=== PATIENT | male | born 1945 | race Caucasian/White ===

== ENCOUNTER 2016-12-03 10:40 | Inpatient (IN) | payer OTHER ==
[~2016-12-03] VITALS: Ht 172.7 cm; Wt 110.9 kg
[2016-12-12] MEDS ORDERED: OMEP20TA PO (12:46)
[2016-12-12] MEDS ORDERED: PRED20 PO (12:46)
[2016-12-12] MEDS ORDERED: AMLO5TAB2 PO (12:46)
[2016-12-12] MEDS ORDERED: MELO-1 PO (12:46)
[2016-12-12] MEDS ORDERED: OXYC1TAB36 PO (12:46)
[2016-12-15] MEDS: POVIDONE IODINE 7.5% SCRUB 118 ML BOTTLE TOP SCH (05:50)
[2016-12-15 05:55] VITALS: BP 170/93; PULSE 76; RESP 20; TEMP 97.9; O2SAT 96
[2016-12-15] MEDS ORDERED: GENTAMICIN SULFATE 80 MG/2 ML VIAL ONE (05:57)
[2016-12-15] MEDS ORDERED: VANCOMYCIN 1000 MG/NS 250 ML (for <70 kg) IV SCH ×2 (06:00)
[2016-12-15] MEDS: LACTATED RINGER'S 1000 ML IV SCH (06:00)
[2016-12-15] MEDS ORDERED: DEXAMETHASONE SOD PHOS 20 MG/5 ML VIAL IV ONE (06:00)
[2016-12-15] MEDS: SODIUM CHLORID 0.9% 500 ML IV SCH ×2 (06:00→22:40)
[2016-12-15] MEDS ORDERED: METOPROLOL TARTRATE 25 MG TAB PO PRN (06:00)
[2016-12-15] MEDS ORDERED: INSULIN HUMAN REGULAR 1,000 UNITS/10 ML VIAL SQ PRN (06:00)
[2016-12-15] MEDS: CHLORHEXIDINE GLUCONATE 4% SOLN 120 ML BTL TOP SCH (06:00)
[2016-12-15] MEDS ORDERED: ceFAZolin 2 GM PREMIX 50 ML IV SCH (06:00)
[2016-12-15] MEDS ORDERED: MIDAZOLAM HCL 2 MG/2 ML VIAL ONE (06:45)
[2016-12-15] MEDS ORDERED: FAMOTIDINE 20 MG/2 ML VIAL ONE (06:45)
[2016-12-15] MEDS ORDERED: TRANEXAMIC ACID IV SCH ×2 (07:00→10:00)
[2016-12-15] MEDS ORDERED: SODIUM CHLORIDE 0.9% IV SCH ×2 (07:00→10:00)
[2016-12-15] MEDS ORDERED: TRANEXAMIC PERI-ARTICULAR 3,000 MG/NS 100 ML P-ARTICULR SCH ×2 (07:00)
[2016-12-15] MEDS ORDERED: EXPAREL PERI-ARTICULAR INJECTION (TOTAL VOL. 60 ML) P-ARTICULR SCH ×2 (07:00)
[2016-12-15] MEDS ORDERED: ENOX40P SQ (07:11)
[2016-12-15] MEDS ORDERED: ASPI81CH37 CHEW (07:12)
[2016-12-15] MEDS ORDERED: PERC10TA27 PO (07:13)
[2016-12-15] MEDS ORDERED: diphenhydrAMINE HCL 50 MG/ML VIAL IV PRN (07:15)
[2016-12-15] MEDS ORDERED: ZOLPIDEM TARTRATE 5 MG TAB PO PRN (07:15)
[2016-12-15] MEDS ORDERED: MORPHINE SULFATE 4 MG/ML INJ IV PUSH PRN (07:15)
[2016-12-15] MEDS ORDERED: oxyCODONE/ACETAMINOPHEN 5 MG/325 MG TAB PO PRN ×2 (07:15)
[2016-12-15] MEDS ORDERED: NALOXONE HCL 0.4 MG/ML AMP IV PRN (07:15)
[2016-12-15] MEDS ORDERED: MAGNESIUM HYDROXIDE SUSP 30 ML CUP PO PRN (07:15)
[2016-12-15] MEDS ORDERED: Post-op Orders (for Pharmacy) MISC XX ONE (07:15)
[2016-12-15] MEDS ORDERED: SODIUM CHLORIDE 0.9% FLUSH 5 ML FLUSH IVF PRN (07:15)
[2016-12-15] MEDS ORDERED: ALUMINUM/MAGNESIUM/SIMETH 30 ML CUP PO PRN (07:15)
[2016-12-15] MEDS ORDERED: BISACODYL 10 MG SUPP PR PRN (07:15)
[2016-12-15] MEDS ORDERED: ONDANSETRON HCL 4 MG/2 ML VIAL IVP PRN (07:15)
[2016-12-15] MEDS: PANTOPRAZOLE SOD 20 MG DELAYED RELEASE TAB PO SCH (09:00)
[2016-12-15] MEDS: SODIUM CHLORIDE 0.9% FLUSH 5 ML FLUSH IVF SCH ×2 (09:00→21:00)
[2016-12-15] MEDS ORDERED: fentaNYL CITRATE 250 MCG/5 ML AMP ONE (09:15)
[2016-12-15] MEDS ORDERED: *morphine SULFATE 8 MG/ML PERIprocedure ONLY ONE (09:27)
[2016-12-15] MEDS: SODIUM CHLOR 0.9% 1000 ML INJ 1,000 ML IV SCH ×2 (09:30→16:08)
--- NOTE | 2016-12-15 09:41 | MP ---
cc: EDITH RAMIREZ DATE OF SURGERY 12/15/2016 PREOPERATIVE DIAGNOSIS Right hip osteoarthritis. POSTOPERATIVE DIAGNOSES Right hip osteoarthritis. PROCEDURE Right total hip arthroplasty. SURGEON Dr. Edith Ramirez SENIOR MAINTENANCE TECHNICIAN Thom Steven PA-C ANESTHESIA General. ESTIMATED BLOOD LOSS 200 cc. COMPLICATIONS None. IMPLANTS USED DePuy Corail size 13 Press-Fit high-offset femoral stem, size 56-mm solid Wild Horse Gription cup, size 36-mm neutral highly cross-linked polyethylene liner, size 36-mm ceramic head, +5 neck. JUSTIFICATION This patient is a male with severe end-stage osteoarthritis involving the right hip. He has severe, disabling pain with standing, walking, ambulation, weightbearing activities, even severe pain at rest. The pain interferes with activities of daily living. He has failed greater than three months of nonoperative conservative treatment to include medications, therapy, ambulatory assistive aids, home exercise program, activity modification, weight loss attempts. X-rays of the right hip reveal severe end-stage osteoarthritis and estm-dx-[id number] joint space narrowing, subchondral sclerosis, osteophyte formation, subchondral cysts and subluxation. The patient was counseled as to the risks, benefits and alternatives to total hip arthroplasty. The risks were discussed which include but are not limited to anesthesia, bleeding, infection, damage to nerves, blood vessels, pain, stiffness, fracture dislocation, leg length discrepancies, blood clots, pulmonary embolism and even . The patient's pain is severe. He favored the benefits over the risks and did wish to proceed with surgery. PROCEDURE IN DETAIL Written consent was obtained. The patient was identified by name and taken to the operating room, placed supine on the operating room table. General anesthesia was administered as well as 2 grams of IV Ancef and 1 gram of IV vancomycin. The right hip and right lower extremity were prepped and draped using isopropyl alcohol, Hibiclens solution and Chloraprep solution. After an appropriate time-out was performed, a longitudinal incision was made over the anterolateral aspect of the right hip. The fascial layer was incised. Dissection was carried over tensor fascia matty, beneath the rectus femoris to allow exposure to the anterior hip capsule. A capsulotomy incision was performed. An oscillating saw was used to perform a femoral neck cut. The osteoarthritic femoral head and neck component was removed. A #10 blade scalpel was used to excise the labrum. Sequential reaming began at size 49 and was carried through to size 56. Subsequently, a solid size 56 Wild Horse Gription cup was impacted in approximately 45 degrees of abduction and 10 degrees of anteversion. There was excellent purchase and fixation. After insertion of the cup, a screw hole liner was placed, followed by the neutral liner. The liner was impacted in place and tested for stability. Attention was then turned to the femur where the leg was externally rotated, extended and adducted. The capsule was released off the inner surface of the greater trochanter to allow for elevation and lateralization of the femur. A box-cutting osteotome was used to gain entrance into the intramedullary canal of the femur. This was followed by canal finder and sequential broaching up to size 13. Calcar planer was used to plane the calcar. Trial head and neck components were evaluated and the final components implanted were the +5 neck, 36 head. The leg could achieve externally rotation to 70 degrees and extension all the way down to the ground without evidence of anterior instability. Fluoroscopic imaging showed proper implantation of the components. The surgical wound was thoroughly irrigated with sterile saline solution. The fascial layer was closed with #1 Vicryl suture, the subcutaneous layer with 2-0 Vicryl suture. The skin was closed with Dermabond. Sterile dressings were applied. The patient tolerated the procedure well with no intraoperative complications noted. Thom Steven, physician assistant gm of content & delivery certified, was present during the entire procedure to include patient positioning and the procedure itself. The medical necessity of a physician assistant gm of content & delivery was indicated in this case due to the complexity of the procedure. He assisted with appropriate manipulation of the leg and also retraction of muscle, tendon, bone and neurovascular structures. He assisted with preparation of bone and implantation of the prosthetic replacement. Edith Ramirez MD JWM/SSB /8:53 AM /9:28 AM
[2016-12-15] MEDS ORDERED: *ONDANSETRON 4 MG VIAL PERIprocedural Use ONLY ONE (10:03)
[2016-12-15] MEDS ORDERED: PROPOFOL 200 MG/20 ML AMP IV ONE (10:04)
[2016-12-15] MEDS ORDERED: PHENYLEPH/NS 1000 MCG/10 ML SYR IV ONE (10:05)
[2016-12-15] MEDS ORDERED: NEOSTIGMINE 3 MG/3 ML SYR IV ONE (10:05)
[2016-12-15] MEDS ORDERED: LACTATED RINGER'S 1000 ML INJ 1,000 ML IV ONE (10:05)
[2016-12-15] MEDS ORDERED: ONDANSETRON HCL 4 MG/2 ML VIAL IV PUSH ONE (10:05)
[2016-12-15] MEDS ORDERED: ePHEDrine/NS 25 MG/5 ML SYR IV ONE (10:05)
--- NOTE | 2016-12-15 10:15 | RADRPT ---
EXAM DATE/TIME: 12/15/2016 09:18 [facility] COMPARISON: No previous studies available for comparison. INDICATIONS : Post op right hip. MEDICAL HISTORY : None. SURGICAL HISTORY : Left total hip replacement ENCOUNTER: Initial ACUITY: 1 day PAIN SCORE: 4/10 LOCATION: Right pelvis FINDINGS: AP view the pelvis weighted 3 views of the right hip following recent total hip arthroplasty in [facility] ents noncemented acetabular and femoral component in place. No unexpected finding is identified. Ther e is soft tissue gas around the right hip joint. Left total hip arthroplasty is also present. CONCLUSION: Expected changes are present following right total hip arthroplasty. No acute finding is visualized. Charly Johnson MD on December 15, 2016 at 10:12 Board Certified Radiologist. This report was verified electronically.
[2016-12-15] MEDS: amLODIPine BESYLATE 5 MG TAB PO SCH (10:50)
--- NOTE | 2016-12-15 10:58 | RADRPT ---
EXAM DATE/TIME: 12/15/2016 07:29 [facility] COMPARISON: No previous studies available for comparison. INDICATIONS : Right anterior hip replacement. MEDICAL HISTORY : Hypertension. Gastroesophageal reflux disease. Arthritis. SURGICAL HISTORY : None. ENCOUNTER: Initial ACUITY: 1 day PAIN SCORE: Non-responsive. LOCATION: Right hip. FINDINGS: The patient is status post a total hip arthroplasty with a bipolar prosthesis. Prosthesis is well-sea hayder. Alignment is anatomic. A fracture is not appreciated. CONCLUSION: Anatomic alignment in the AP projection.. Isai James MD FACR Board Certified Radiologist. This report was verified electronically.
[2016-12-15 14:19] VITALS: BP 132/66; PULSE 99; RESP 16; TEMP 97.5; O2SAT 95
[2016-12-15] MEDS: predniSONE 20 MG TAB PO SCH (15:54)
[2016-12-15 16:00] VITALS: BP 135/69; PULSE 85; RESP 16; TEMP 96.4; O2SAT 96
[2016-12-15 20:00] VITALS: BP 136/65; PULSE 80; RESP 16; TEMP 97.9; O2SAT 96
[2016-12-15 22:30] VITALS: O2SAT 92
[2016-12-16] VITALS: BP 132/63; PULSE 76; RESP 16; TEMP 98.4; O2SAT 95
[2016-12-16] MEDS: SODIUM CHLOR 0.9% 1000 ML INJ 1,000 ML IV SCH (01:53)
[2016-12-16 04:00] VITALS: BP 145/69; PULSE 86; RESP 17; TEMP 97.7; O2SAT 94
[2016-12-16] MEDS: LACTATED RINGER'S 1000 ML IV SCH (04:07)
[2016-12-16] MEDS: CHLORHEXIDINE GLUCONATE 4% SOLN 120 ML BTL TOP SCH (04:08)
[2016-12-16] MEDS: POVIDONE IODINE 7.5% SCRUB 118 ML BOTTLE TOP SCH (04:08)
--- NOTE | 2016-12-16 07:44 | PD.CONS ---
HPI Service [facility] Hospitalists Consult Requested By Ortho Reason for Consult Medical management Primary Care Physician [facility] Diagnoses: History of Present Illness 71 years old male with history of hypertension and GERD, bilateral carpal tunnel syndrome admitted to the hospital under the service or right total hip arthroplasty, hospitalist service requested to see patient for medical management. Patient today resting in bed very comfortably, he is pain-free, very pleasant, he told me he was on prednisone for the last few days due to getting arthritis in his wrist, he is on aspirin prophylactically. He denied having any history of coronary artery disease stroke, he is a nonsmoker. Currently no chest pain, short of breath fever chills, bone pain diarrhea constipation, he stated his right breast arthritis improved significantly Review of Systems All 10 systems reviewed and was positive for what is mentioned in history of present illness otherwise negative Past Family Social History Allergies: Coded Allergies: No Known Allergies (Unverified , 12/15/16) Past Medical History Hypertension GERD Bilateral carpal tunnel syndrome status post surgery Past Surgical History As above Family History History of pancreatic cancer in his mother sister and aunt Social History Denied tobacco alcohol or illicit drug abuse Physical Exam Vital Signs Vital Signs Date Time Temp Pulse Resp B/P Pulse Ox O2 Delivery O2 Flow Rate FiO2 12/16/16 04:00 Room Air 12/16/16 04:00 97.7 86 17 145/69 94 12/16/16 00:00 98.4 76 16 132/63 95 12/16/16 00:00 Room Air 12/15/16 22:30 92 21 12/15/16 20:00 97.9 80 16 136/65 96 12/15/16 20:00 Room Air 12/15/16 16:00 96.4 85 16 135/69 96 12/15/16 14:19 97.5 99 16 132/66 95 12/15/16 13:00 97.6 75 16 140/73 95 Room Air 12/15/16 12:00 78 16 139/71 94 Room Air 12/15/16 11:00 79 15 138/67 100 Nasal Cannula 2 12/15/16 10:30 80 15 141/69 99 Nasal Cannula 2 12/15/16 10:15 97.6 82 15 145/77 98 Nasal Cannula 2 12/15/16 10:00 78 15 147/75 97 Nasal Cannula 2 12/15/16 09:45 77 14 150/70 96 Nasal Cannula 2 12/15/16 09:32 15 12/15/16 09:30 76 14 155/72 95 Nasal Cannula 2 12/15/16 09:15 75 14 160/78 99 Nasal Cannula 3 12/15/16 09:10 97.9 75 13 164/81 98 Nasal Cannula 3 Physical Exam GENERAL: This is a well-nourished, well-developed patient, in no apparent distress. SKIN: No rashes, warm and dry HEAD: Atraumatic. Normocephalic. EYES: Pupils equal round and reactive. Extraocular motions intact. No scleral icterus. ENT: Nose without bleeding, or drainage, Airway patent. NECK: Trachea midline. Supple CARDIOVASCULAR: Regular rate and rhythm without murmurs, gallops, or rubs. RESPIRATORY: Fair air entry bilaterally. No wheezes, rales, or rhonchi. GASTROINTESTINAL: Abdomen soft, non-tender, nondistended. Positive bowel sounds MUSCULOSKELETAL: Extremities without clubbing, cyanosis, or edema. Pedal pulses appreciated NEUROLOGICAL: Awake and alert. Moves all extremity. Normal speech.no focal neurological deficit Imaging Last Impressions Hip and Pelvis X-Ray 12/15/16 0000 Signed Impressions: Service Date/Time: Thursday, December 15, 2016 09:18 - CONCLUSION: Expected changes are present following right total hip arthroplasty. No acute finding is visualized. Charly Johnson MD Hip X-Ray 12/15/16 0000 Signed Impressions: Service Date/Time: Thursday, December 15, 2016 07:29 - CONCLUSION: Anatomic alignment in the AP projection.. Isai James MD Assessment and Plan Assessment and Plan 71 years old male admitted with Osteoarthritis status post right total hip arthroplasty: Doing well postop, continue postop protocol, DVT prophylaxis per ortho, pain management with Percocet and morphine Hypertension essential: Agree with continuing amlodipine, will add Vasotec as needed History of GERD: Agree with continuing PPI History of recent incidental finding of lung nodules, patient awaiting results of outpatient PET scan>> follow as an outpatient DVT prophylaxis per ortho Thank you for this consultation Discussed Condition With Patient and his ErnestinaClaudia MD Dec 16, 2016 07:44
[2016-12-16 08:00] VITALS: BP 158/82; PULSE 84; RESP 18; TEMP 99.1; O2SAT 94
[2016-12-16] MEDS ORDERED: ENOXAPARIN SODIUM 40 MG/0.4 ML SYRINGE SQ SCH (08:00)
[2016-12-16] MEDS: PANTOPRAZOLE SOD 20 MG DELAYED RELEASE TAB PO SCH (08:22)
[2016-12-16] MEDS: SODIUM CHLORIDE 0.9% FLUSH 5 ML FLUSH IVF SCH (08:22)
[2016-12-16] MEDS: predniSONE 20 MG TAB PO SCH (08:22)
[2016-12-16] MEDS: amLODIPine BESYLATE 5 MG TAB PO SCH (08:22)
--- NOTE | 2016-12-16 08:23 | PD.ORT.PN ---
Subjective Post Op Day #: 1 Subjective Remarks minimal pain. Objective Vitals Vital Signs Date Time Temp Pulse Resp B/P Pulse Ox O2 Delivery O2 Flow Rate FiO2 12/16/16 04:00 Room Air 12/16/16 04:00 97.7 86 17 145/69 94 12/16/16 00:00 98.4 76 16 132/63 95 12/16/16 00:00 Room Air 12/15/16 22:30 92 21 12/15/16 20:00 97.9 80 16 136/65 96 12/15/16 20:00 Room Air 12/15/16 16:00 96.4 85 16 135/69 96 12/15/16 14:19 97.5 99 16 132/66 95 12/15/16 13:00 97.6 75 16 140/73 95 Room Air 12/15/16 12:00 78 16 139/71 94 Room Air 12/15/16 11:00 79 15 138/67 100 Nasal Cannula 2 12/15/16 10:30 80 15 141/69 99 Nasal Cannula 2 12/15/16 10:15 97.6 82 15 145/77 98 Nasal Cannula 2 12/15/16 10:00 78 15 147/75 97 Nasal Cannula 2 12/15/16 09:45 77 14 150/70 96 Nasal Cannula 2 12/15/16 09:32 15 12/15/16 09:30 76 14 155/72 95 Nasal Cannula 2 12/15/16 09:15 75 14 160/78 99 Nasal Cannula 3 12/15/16 09:10 97.9 75 13 164/81 98 Nasal Cannula 3 I/O 12/15/16 12/15/16 12/15/16 12/16/16 12/16/16 12/16/16 07:00 15:00 23:00 07:00 15:00 23:00 Intake Total 2040 ml 730 ml 895 ml Output Total 1575 ml 350 ml 650 ml Balance 465 ml 380 ml 245 ml Intake Oral 240 ml 240 ml 240 ml IV Total 300 ml 490 ml 655 ml Other 1500 ml Output Urine Total 1075 ml 350 ml 650 ml Estimated Blood Loss 500 ml # Bowel Movements 0 0 Objective Remarks in bed, nad incision no erythema, no drainage thigh soft. neg homans nvi Assessment & Plan Ortho Post Op Day #: 1 Problem List: Assessment and Plan s/p R VANI wbat daily dressing changes lovenox rx in chart d/c planning home with [facility] and pt - cleared for today if pain remains under control. f/up dr. chakraborty 2 weeks Jun Steven Dec 16, 2016 08:23
--- NOTE | 2016-12-16 08:24 | HHI.DCPOC ---
Discharge Care Plan Diagnosis: (1) Primary localized osteoarthrosis, pelvic region and thigh Your Health Problems Are: Difficulty with ADL Goals to Promote Your Health * To prevent worsening of your condition and complications * To maintain your health at the optimal level Directions to Meet Your Goals Take your medications as prescribed Follow your dietary instruction Follow activity as directed Keep your appointments as scheduled Take your immunizations and boosters as scheduled If your symptoms worsen call your PCP, if no PCP go to Urgent Care Center or Emergency Room Smoking is Dangerous to Your Health. Avoid second hand smoke Call the 24-hour hour crisis hotline for domestic abuse at Jun Steven Dec 16, 2016 08:24
--- NOTE | 2016-12-16 08:25 | HHI.FF ---
Face to Face Verification Diagnosis: (1) Primary localized osteoarthrosis, pelvic region and thigh Physical Therapy Gait training, Safety evaluation, Transfer training, bed to chair Hip: Total hip, Protocol: Right, Progress to weight bearing Right LE Weight Bearing: WB as tolerated Nursing RN: 3 days/week x 2 weeks Nursing: Aram teaching, Dressing changes Dressing Changes: Daily dressing change I have seen patient Yong Pope on 12/16/16. My clinical findings support the need for the requested home health care services because: Limited ability to care for self High risk of falls I certify that my clinical findings support that this patient is homebound because: Post-op weakness Unsteady gait/balance Jun Steven Dec 16, 2016 08:25
[2016-12-16] MEDS ORDERED: MISC-163 (08:26)
[2016-12-16] MEDS ORDERED: ENALAPRILAT 1.25 MG/ML VIAL IV PUSH PRN (08:30)
[2016-12-16 08:54] LABS: AUTOMATED NEUTROPHIL # 6.9 TH/MM3 (1.8-7.7); BASOPHIL % 0.1 % (0.0-2.0); EOSINOPHIL % 0.4 % (0.0-4.0); HEMO FLAGS DIFF FINAL; LYMPH % 13.4 % (9.0-44.0); LYMPHOCYTE # 1.2 TH/MM3 (1.0-4.8); MEAN CELL VOLUME 88.6 FL (80.0-100.0); MONO % 9.3 % (0.0-8.0); NEUT % 76.8 % (16.0-70.0); PLATELET COUNT 164 TH/MM3 (150-450); RED BLOOD COUNT 3.73 MIL/MM3 (4.50-5.90); RED CELL DISTRIBUTION WIDTH 13.2 % (11.6-17.2); WHITE BLOOD COUNT 8.9 TH/MM3 (4.0-11.0)
[2016-12-16 09:07] LABS: BICARBONATE 27.6 MEQ/L (21.0-32.0); POTASSIUM 3.5 MEQ/L (3.5-5.1)
[2016-12-16] MEDS ORDERED: MAGNESIUM HYDROXIDE SUSP 30 ML CUP PO SCH (09:15)
[2016-12-16 09:27] VITALS: O2SAT 95
[2016-12-16 12:00] VITALS: BP 147/70; PULSE 78; RESP 18; TEMP 98.5; O2SAT 93
[2016-12-16] MEDS ORDERED: DOCUSATE SODIUM 100 MG CAP PO SCH (21:00)
[2016-12-16] MEDS ORDERED: SENNOSIDES 8.6 MG TAB PO SCH (21:00)
[2016-12-16] MEDS ORDERED: MULTIVITAMINS/MINERALS THERAPEUTIC TAB PO SCH (21:00)
--- NOTE | 2016-12-24 10:48 | MD ---
cc: EDITH DURHAM ADMISSION DATE: 12/15/2016 DISCHARGE DATE: 12/16/2016 ADMISSION DIAGNOSIS Severe degenerative osteoarthritis, right hip. DISCHARGE DIAGNOSIS Severe degenerative osteoarthritis, right hip. HISTORY OF PRESENT ILLNESS Mr. Pope is a 71-year-old male who presented to the [facility] for evaluation by Dr. Edith Durham regarding his severe and progressive right hip pain. The patient does have a history of a well functioning left total hip arthroplasty. The patient states his right hip pain has been progressive for greater than 1 year duration, for which he has been treated for this ailment, but he notes for the last 6 months has been severe pain in the right hip with weightbearing activities. He notes he has no alleviating factors at this point in time, however, he has tried medications, assistive devices, physical therapy, home exercise program and corticosteroid injection without long-lasting relief of symptoms. The patient does have x-ray evidence of severe degenerative osteoarthritis of the right hip. While in the office the patient was counseled of his diagnosis, treatment options, risks, benefits, indications were discussed. The patient did elect to proceed with surgical intervention to include a right total hip arthroplasty. DATE OF SURGERY 12/15/2016: Right total hip arthroplasty anterior approach. HOSPITAL COURSE/DISCHARGE INSTRUCTIONS Postop after surgery the patient was admitted to [facility] where he received appropriate medical management, pain control, DVT prophylaxis as well as physical therapy and discharged. Once being discharged from the hospital the patient is cleared to go home. He will receive home health care and home physical therapy. He is in stable condition. He may weight-bear as tolerated with anterior hip precautions. The patient to receive daily dressing changes and has been instructed on appropriate wound care management. Patient has been provided prescriptions for both pain control as well as DVT prophylaxis medication. He also been provided a follow-up appointment to see Dr. Edith Durham in the office approximately two weeks from date of surgery. The patient has asked appropriate questions which have all been answered. The patient has been discharged. Dictated by: SHARON Durant MD NIR Pardo/CRESENCIO /8:16 AM /9:38 AM
== END 2016-12-16 13:22 | disposition home health service (06) | DRG 470 ==
LOC: HSDI 12-15 05:29 → N06A 12-15 13:32
PROVIDERS: ADMIT Orthopaedic Surgery Sports Medicine; ATTEND Orthopaedic Surgery Sports Medicine
PROC: 0SR904A Replacement of Right Hip Joint with Ceramic on Polyethylene Synthetic Substitute, Uncemented, Open Approach (ICD-10-PCS; principal; 2016-12-15 06:57)
DX: M16.11 Unilateral primary osteoarthritis, right hip (principal); I10 Essential (primary) hypertension; K21.9 Gastro-esophageal reflux disease without esophagitis; Z79.82 Long term (current) use of aspirin
CPT/HCPCS: 73502; 76000; 80048; 85025; 86850; 86900; 86901; 94150; C1776; C9290; J0690; J1100; J1580; J1650; J2250; J2270; J2370; J2405; J2710; J3010; J3370; J7030; J7050; J7120; J7512